=== PATIENT | male | born 1960 | race African-American/Black ===

== ENCOUNTER 2024-11-19 06:44 | Day surgery (SDC) | payer BC ==
[2024-11-13 16:29] VITALS: BMI 31.3
[2024-11-19] MEDS ORDERED: BUPIVACAINE HCL/PF 0.25% (2.5MG/ML) 10 ML VIAL ONE (13:27)
[2024-11-19] MEDS ORDERED: HEPARIN NA (PORCINE) 5,000 UNITS/ML 1ML VIAL ONE (13:27)
[2024-11-19] MEDS: BUPIVACAINE HCL/PF 0.25% (2.5MG/ML) 10 ML VIAL IJ ONE ×2 (13:34)
[2024-11-19] MEDS ORDERED: PROPOFOL 20 ML ONE ×2 (13:42→16:46)
[2024-11-19] MEDS ORDERED: MIDAZOLAM HCL 2 MG/2 ML SINGLE DOSE VIAL ONE (13:43)
[2024-11-19] MEDS ORDERED: LIDOCAINE HCL/PF 2% SDV 5ML VIAL ONE (13:43)
[2024-11-19] MEDS ORDERED: ROCURONIUM BROMIDE 50 MG/5 ML SYRINGE ONE (13:43)
[2024-11-19] MEDS ORDERED: ONDANSETRON 4 MG/2 ML VIAL IVPUSH PRN (14:16)
[2024-11-19] MEDS ORDERED: ACETAMINOPHEN 325 MG TABLET (FP) PO PRN (14:16)
[2024-11-19] MEDS ORDERED: LACTATED RINGERS SOLUTION 1,000 ML IV SCH (14:30)
[2024-11-19] MEDS: ceFAZolin SODIUM 1 GM VIAL IVPB ONE (15:10)
[2024-11-19] MEDS ORDERED: ACETAMINOPHEN INJECTION 100 ML ONE (15:24)
[2024-11-19] MEDS ORDERED: ROCURONIUM BROMIDE 50 MG/5 ML VIAL ONE (15:25)
[2024-11-19] MEDS ORDERED: SUGAMMADEX SODIUM 200 MG/2 ML VIAL ONE (16:33)
[2024-11-19] MEDS: oxyCODONE HCL 5 MG TABLET PO PRN ×2 (18:52→19:24)
[2024-11-19] MEDS ORDERED: oxyCODONE HCL 5 MG TABLET ONE (18:54)
[2024-11-19] MEDS ORDERED: oxyCODONE HCL 10 MG SUSTAINED ACTING TABLET ONE (19:25)
[2024-11-19 19:43] VITALS: RESP 20; TEMP 97.3
[2024-11-19 19:45] VITALS: BP 135/87; PULSE 84
== END 2024-11-19 20:00 | disposition home or self-care (01) ==
LOC: JASUSAT 06:44 → JASU-SURG 06:44 → JASUSAT 20:00
PROVIDERS: ATTEND Surgery
PROC: 8E0W4CZ Robotic Assisted Procedure of Trunk Region, Percutaneous Endoscopic Approach (ICD-10-PCS; 2024-11-19)
PROC: 0WUF4JZ Supplement Abdominal Wall with Synthetic Substitute, Percutaneous Endoscopic Approach (ICD-10-PCS; principal; 2024-11-19 11:15)
DX: K42.0 Umbilical hernia with obstruction, without gangrene (principal)
CPT/HCPCS: 49594; S2900; 86850; 86900; 86901; 94760; C1781; J0131; J1644